=== PATIENT | male | born 1995 | race Caucasian/White ===

== ENCOUNTER 2016-03-15 09:52 | Emergency (ER) | payer SELFPAY ==
[~2016-03-15] VITALS: Ht 165.1 cm; Wt 59.1 kg
[2016-03-15 09:58] VITALS: Ht 165.1 cm; Wt 59.1 kg
[2016-03-15] MEDS ORDERED: LORAZEPAM 1 MG TAB PO ONE (10:00)
--- NOTE | 2016-03-15 10:16 | ERD ---
ER Documentation Chief Complaint Date/Time DATE: 03/15/16 TIME: 10:13 Chief Complaint BROUGHT IN VIA EMS DUE TO DRUG USE HPI 20-year-old male brought to the emergency department with [employer] and the ambulance after using methamphetamine. According to the police and the paramedics, patient was wandering the street after using methamphetamine. He had no medical complaints or psychiatric complaints. The police brought him here to the emergency department for further evaluation. I have reviewed the tool or die drawing checker pre-hospital care. Pre-hospital vital signs were reviewed. Pre-hospital diagnostic tests were reviewed. Upon arrival, patient has no complaints. He has no medical concerns, no psychiatric concerns, and is able to express a care plan for himself. ROS All systems reviewed and are negative except as per history of present illness. PMhx/Soc Medical and Surgical Hx: pt denies Medical Hx, pt denies Surgical Hx Hx Alcohol Use: Yes Hx Substance Use: Yes Hx Tobacco Use: Yes Smoking Status: Never smoker FmHx Noncontributory for chief complaint Physical Exam Vitals Vital Signs Date Time Temp Pulse Resp B/P Pulse Ox O2 Delivery O2 Flow Rate FiO2 03/15/16 09:58 98.5 103 20 136/63 99 Physical Exam GENERAL: The patient is well developed and appropriate for usual state of health in no apparent distress HEENT: Pupils equal, round, and reactive to light. EOMI. There is no scleral icterus. NECK: C-spine is soft and supple, there is no meningismus. There is no cervical lymphadenopathy. LUNGS: Clear to auscultation bilaterally. There are no rales, wheezes or rhonchi. HEART: Regular rate and rhythm, no murmurs, clicks, rubs or gallops. ABDOMEN: Soft, non-tender, non-distended. There are bowel sounds in all four quadrants. No rebound or guarding. EXTREMITIES: There is no peripheral cyanosis or edema. No focal swelling or erythema. NEURO: The patient moves all four extremities with 5/5 strength. Cranial nerves II - XII are intact. Normal gait. Alert and oriented SKIN: There is no apparent rash or petechiae. HEME/LYMPHATIC: There is no evidence of excessive bruising or lymphedema. PSYCHIATRIC: Patient is awake alert oriented and able to express a care plan for himself. He has slightly pressured speech but a linear thought process. He is denying suicidal or homicidal thoughts, auditory or visual hallucinations. Results 24 hrs Current Medications Medications (Trade) Dose Ordered Sig/Mark Route PRN Reason Start Time Stop Time Status Last Admin Dose Admin Lorazepam (Ativan) 2 mg ONCE ONCE PO 03/15/16 10:00 03/15/16 10:01 DC 03/15/16 10:10 Procedures/MDM Patient was taken to a room, seen and examined Medical decision m[age]-year-old male presents to the emergency department after using methamphetamine. At this time, patient has no psychiatric social or medical complaints and did not wish to stay for further observation. After receiving Ativan, he shows no evidence of high-risk concerns. He appears to be clinically well at this time with no need for further psychiatric or medical intervention and he now appears to be appropriate for outpatient care. Departure Diagnosis: Primary Impression: Drug use Condition: Stable Patient Instructions: Drug Abuse Additional Instructions: Don't do drugs. [facility] REIS Mar 15, 2016 10:15
== END 2016-03-15 10:28 | disposition home or self-care (01) ==
LOC: E/R 09:52
DX: F15.10 Other stimulant abuse, uncomplicated (principal); Z72.0 Tobacco use
CPT/HCPCS: 99283